=== PATIENT | female | born 1980 | race African-American/Black ===

== ENCOUNTER 2018-04-09 18:48 | Emergency (ER) | payer OTHER ==
[~2018-04-09] VITALS: Ht 170.2 cm; Wt 72.6 kg
[2018-04-09] MEDS ORDERED: NORFLEX100 MG PO (19:18)
[2018-04-09] MEDS ORDERED: NAPROSYN500 MG PO (19:18)
[2018-04-09 19:32] VITALS: BP 132/87
== END 2018-04-09 19:31 | disposition home or self-care (01) ==
LOC: ER 18:48
DX: G44.209 Tension-type headache, unspecified, not intractable (principal); M54.2 Cervicalgia; M25.511 Pain in right shoulder; M25.512 Pain in left shoulder; R11.0 Nausea; R42 Dizziness and giddiness